=== PATIENT | male | born 1995 | race Asian ===

== ENCOUNTER 2020-09-09 18:53 | Emergency (ER) | payer SELFPAY ==
[~2020-09-09] VITALS: Ht 167.6 cm; Wt 65.9 kg
[2020-09-09 20:13] LABS: BASOPHILS % (AUTO) 0.7 % (0.0-2.0); EOSINOPHILS % (AUTO) 0.3 % (1.0-6.0); HEMATOCRIT 45.2 % (41-53); HEMOGLOBIN 15.3 g/dL (13.5-17.5); LYMPHOCYTES # (AUTO) 1.6 K/uL (1.0-4.8); LYMPHOCYTES % (AUTO) 21.8 % (22.0-44.0); MEAN CORPUSCULAR HGB CONC 33.8 G/dL (31.0-37.0); MEAN CORPUSCULAR VOLUME 89 fL (80-100); MONOCYTES # (AUTO) 1.4 K/uL (0.1-1.0); NEUTROPHILS # (AUTO) 4.3 K/uL (1.8-7.7); NEUTROPHILS % (AUTO) 58.2 % (40.0-70.0); PLATELET COUNT (AUTO) 219 K/uL (150-450); RED BLOOD CELL COUNT(AUTO) 5.08 MIL/uL (4.50-5.90); RED CELL DISTRIBUTION WIDTH 12.9 % (11.5-14.5)
[2020-09-09 20:22] LABS: ANION GAP 10 mmol/L (8-16); CALCIUM, TOTAL 10.5 mg/dL (8.8-10.5); CARBON DIOXIDE 30 mmol/L (22-29); CHLORIDE 99 mmol/L (98-107); GLOMERULAR FILTR. RATE CALC > 60 mL/min (>60); GLUCOSE,RANDOM 103 mg/dL (70-110); POTASSIUM 3.8 mmol/L (3.5-5.1); SODIUM SERUM 139 mmol/L (136-145); UREA NITROGEN, BLOOD 17 mg/dL (7-18)
[2020-09-09 20:28] LABS: ALANINE AMINOTRANSFERASE 48 U/L (12-78); ALBUMIN 4.7 g/dL (3.4-5.0); ALKALINE PHOSPHATASE 71 U/L (46-116); ASPARTATE AMINOTRANSFERASE 30 U/L (15-37); BILIRUBIN,TOTAL 1.4 mg/dL (0.1-1.0); TOTAL PROTEIN, SERUM 8.8 g/dL (6.4-8.2)
[2020-09-09 22:32] VITALS: BP 140/86
== END 2020-09-09 22:40 | disposition home or self-care (01) ==
LOC: EMS 18:53
DX: F20.9 Schizophrenia, unspecified (principal)
CPT/HCPCS: 36415; 80053; 85025; 99284; G0480

== ENCOUNTER 2020-09-20 11:06 | Emergency (ER) | payer SELFPAY ==
[~2020-09-20] VITALS: Ht 175.3 cm; Wt 68.2 kg
[2020-09-20 11:18] VITALS: BP 125/80
== END 2020-09-20 12:07 | disposition home or self-care (01) ==
LOC: EMS 11:11
DX: F29 Unspecified psychosis not due to a substance or known physiological condition (principal); R11.0 Nausea; F20.9 Schizophrenia, unspecified; F17.200 Nicotine dependence, unspecified, uncomplicated
CPT/HCPCS: 99281; Z7502

== ENCOUNTER 2021-03-14 13:27 | Emergency (ER) | payer MEDICAID ==
[~2021-03-14] VITALS: Ht 170.2 cm; Wt 63.6 kg
[2021-03-14] MEDS ORDERED: LORazepam 1 MG TABLET PO ONE (14:45)
[2021-03-14] MEDS ORDERED: HALOPERIDOL 5 MG TABLET PO ONE (14:45)
[2021-03-14 15:50] VITALS: BP 107/60
== END 2021-03-14 16:40 | disposition home or self-care (01) ==
LOC: EMS 13:27
DX: F20.9 Schizophrenia, unspecified (principal)
CPT/HCPCS: 99283

== ENCOUNTER 2021-03-15 14:03 | Emergency (ER) | payer MEDICAID ==
[~2021-03-15] VITALS: Ht 170.2 cm; Wt 63.6 kg
[2021-03-15 15:16] LABS: BASOPHILS % (AUTO) 1.4 % (0.0-2.0); EOSINOPHILS % (AUTO) 2.1 % (1.0-6.0); HEMATOCRIT 38.4 % (41-53); HEMOGLOBIN 12.9 g/dL (13.5-17.5); LYMPHOCYTES # (AUTO) 1.5 K/uL (1.0-4.8); LYMPHOCYTES % (AUTO) 44.7 % (22.0-44.0); MEAN CORPUSCULAR HEMOGLOBIN 29.7 pg (26.0-34.0); MEAN CORPUSCULAR HGB CONC 33.6 G/dL (31.0-37.0); MEAN CORPUSCULAR VOLUME 89 fL (80-100); MONOCYTES # (AUTO) 0.4 K/uL (0.1-1.0); MONOCYTES % (AUTO) 11.3 % (2.0-9.0); NEUTROPHILS # (AUTO) 1.3 K/uL (1.8-7.7); NEUTROPHILS % (AUTO) 40.5 % (40.0-70.0); PLATELET COUNT (AUTO) 181 K/uL (150-450); RED BLOOD CELL COUNT(AUTO) 4.35 MIL/uL (4.50-5.90)
[2021-03-15 15:28] LABS: ANION GAP 6 mmol/L (8-16); CARBON DIOXIDE 28 mmol/L (22-29); CHLORIDE 105 mmol/L (98-107); CREATININE 1.11 mg/dL (0.60-1.30); GLOMERULAR FILTR. RATE CALC > 60 mL/min (>60); GLUCOSE,RANDOM 114 mg/dL (70-110); POTASSIUM 4.1 mmol/L (3.5-5.1); SODIUM SERUM 139 mmol/L (136-145); UREA NITROGEN, BLOOD 11 mg/dL (7-18)
[2021-03-15 15:35] LABS: ALANINE AMINOTRANSFERASE 24 U/L (12-78); ALBUMIN 3.4 g/dL (3.4-5.0); ALKALINE PHOSPHATASE 92 U/L (46-116); ASPARTATE AMINOTRANSFERASE 32 U/L (15-37); BILIRUBIN,TOTAL 1.8 mg/dL (0.1-1.0); TOTAL PROTEIN, SERUM 6.5 g/dL (6.4-8.2)
[2021-03-15 16:45] VITALS: BP 123/69
== END 2021-03-15 17:12 | disposition home or self-care (01) ==
LOC: EMS 14:03
DX: R45.851 Suicidal ideations (principal); F32.9 Major depressive disorder, single episode, unspecified; F20.9 Schizophrenia, unspecified
CPT/HCPCS: 36415; 80053; 85025; 99284; G0480; 99285

== ENCOUNTER 2024-02-14 23:27 | Inpatient (IN) | payer MEDICAID, OTHER ==
[~2024-02-14] VITALS: Ht 167.6 cm; Wt 65.8 kg
[2024-02-15 02:33] LABS: COVID AG,FIA SOURCE NASAL SWAB
[2024-02-15 02:43] LABS: SARS-COV2 (COVID) ANTIGEN,FIA Negative (Negative)
[2024-02-15] MEDS ORDERED: HALOPERIDOL 5 MG TABLET PO ONE (04:00)
[2024-02-15] MEDS ORDERED: LORazepam 1 MG TABLET PO ONE (04:00)
[2024-02-15] MEDS: DiphenhydrAMINE HCL 50 MG/ML VIAL IM ONE (04:34)
[2024-02-15] MEDS: LORazepam 2 MG/ML VIAL IM ONE (04:34)
[2024-02-15] MEDS: HALOPERIDOL LACTATE 5 MG/ML VIAL IM ONE (04:34)
[2024-02-15 04:48] LABS: BASOPHILS % (AUTO) 0.2 % (0.0-2.0); EOSINOPHILS % (AUTO) 0 % (1.0-6.0); HEMATOCRIT 37.9 % (41-53); HEMOGLOBIN 12.3 g/dL (13.5-17.5); LYMPHOCYTES # (AUTO) 2.6 K/uL (1.0-4.8); LYMPHOCYTES % (AUTO) 22.1 % (22.0-44.0); MEAN CORPUSCULAR HEMOGLOBIN 28.1 pg (26.0-34.0); MEAN CORPUSCULAR HGB CONC 32.4 G/dL (31.0-37.0); MEAN CORPUSCULAR VOLUME 87 fL (80-100); MONOCYTES # (AUTO) 1.1 K/uL (0.1-1.0); MONOCYTES % (AUTO) 9.4 % (2.0-9.0); NEUTROPHILS # (AUTO) 7.9 K/uL (1.8-7.7); NEUTROPHILS % (AUTO) 68.3 % (40.0-70.0); PLATELET COUNT (AUTO) 278 K/uL (150-450); RED BLOOD CELL COUNT(AUTO) 4.37 MIL/uL (4.50-5.90); RED CELL DISTRIBUTION WIDTH 13.8 % (11.5-14.5); WHITE BLOOD COUNT (AUTO) 11.6 K/uL (4.5-11.0)
[2024-02-15 05:01] LABS: ANION GAP 11 mmol/L (8-16); CALCIUM, TOTAL 8.5 mg/dL (8.8-10.5); CARBON DIOXIDE 24 mmol/L (22-29); CHLORIDE 103 mmol/L (98-107); CREATININE 1.43 mg/dL (0.60-1.30); GLOMERULAR FILTR. RATE CALC 60 mL/min (>60); GLUCOSE,RANDOM 97 mg/dL (70-110); POTASSIUM 3.5 mmol/L (3.5-5.1); SODIUM SERUM 138 mmol/L (136-145); UREA NITROGEN, BLOOD 12 mg/dL (7-18)
[2024-02-15 05:31] LABS: ALCOHOL, BLOOD (SERUM) < 3 mg/dL (0-10)
[2024-02-15 07:15] VITALS: O2SAT 96
[2024-02-15] MEDS ORDERED: ZOLPIDEM TARTRATE 10 MG TABLET PO PRN (07:30)
[2024-02-15] MEDS ORDERED: OLANZapine 5 MG RAPDIS TABLET PO PRN (07:30)
[2024-02-15] MEDS ORDERED: CloNIDine HCL 0.1 MG TABLET PO PRN (09:00)
[2024-02-15] MEDS ORDERED: ACETAMINOPHEN 325 MG TABLET PO PRN ×2 (09:00→14:45)
[2024-02-15] MEDS ORDERED: BENZOCAINE/MENTHOL LOZENGE PO PRN (09:00)
[2024-02-15] MEDS ORDERED: IBUPROFEN 600 MG TABLET PO PRN (09:00)
[2024-02-15] MEDS ORDERED: LOPERAMIDE HCL 2 MG CAPSULE PO PRN (09:00)
[2024-02-15] MEDS ORDERED: PETROLATUM,WHITE 28 GM JELLY TP PRN (09:00)
[2024-02-15] MEDS ORDERED: BACITRACIN 28 GM OINTMENT TP PRN (09:00)
[2024-02-15] MEDS ORDERED: ALBUTEROL SULFATE HFA 90 MCG/PUFF 8 GM INHALER IH PRN (09:00)
[2024-02-15] MEDS ORDERED: DOCUSATE SODIUM 100 MG CAPSULE PO PRN (09:00)
[2024-02-15] MEDS ORDERED: ONDANSETRON 4 MG TABLET PO PRN (09:00)
[2024-02-15] MEDS ORDERED: OMEPRAZOLE 20 MG CAPSULE PO PRN (09:00)
[2024-02-15] MEDS ORDERED: MAG HYDROX/ALUMINUM HYD/SIMETH ES 30 ML SUSPENSION UDCUP PO PRN ×2 (09:00→14:45)
[2024-02-15] MEDS ORDERED: MAGNESIUM HYDROXIDE SUSPENSION 30 ML UDCUP PO PRN ×2 (09:00→14:45)
[2024-02-15 12:54] VITALS: BP 113/71; PULSE 66; RESP 18; TEMP 97.4; O2SAT 100
[2024-02-15] MEDS ORDERED: PROMETHAZINE HCL 25 MG TABLET PO PRN (14:45)
[2024-02-15] MEDS ORDERED: GuaiFENesin/D-METHORPHAN [SUGAR-FREE] 200-20MG/10 ML SYRUP UDCUP PO PRN (14:45)
[2024-02-15] MEDS ORDERED: TUBERCULIN, PURIFIED PROTEIN DERIVATIVE 5 TU/0.1 ML SYRINGE ID ONE (14:45)
[2024-02-15] MEDS ORDERED: PALIPERIDONE PALMITATE 234 MG/1.5 ML SYRINGE IM ONE (15:00)
[2024-02-15] MEDS: THIAMINE 100 MG TABLET PO SCH (17:10)
[2024-02-15] MEDS: MELATONIN 5 MG TABLET PO SCH (20:16)
[2024-02-15] MEDS: OLANZapine 5 MG RAPDIS TABLET PO SCH (20:21)
[2024-02-15 22:29] VITALS: RESP 18
[2024-02-16 08:03] VITALS: BP 100/44; PULSE 64; RESP 16; TEMP 97.4; O2SAT 99
[2024-02-16] MEDS: MULTIVITAMINS WITH MINERALS, THERAPEUTIC TABLET PO SCH (08:10)
[2024-02-16] MEDS: FOLIC ACID 1 MG TABLET PO SCH (08:10)
[2024-02-16] MEDS: NALTREXONE HCL 50 MG TABLET PO SCH (08:10)
[2024-02-16] MEDS: BuPROPion HCL XL 150 MG ER TABLET PO SCH (08:10)
[2024-02-16 09:02] LABS: HEMOGLOBIN A1C 5.4 % (3.8-5.6)
[2024-02-16 09:16] LABS: CHOL/HDL RATIO 3.1 (4.2-7.3); FREE T4 (FREE THYROXINE) 0.88 ng/dL (0.76-1.46); THYROID STIMULATING HORMONE 0.46 uIU/mL (0.36-3.74)
[2024-02-16] MEDS: DOXYCYCLINE HYCLATE 100 MG TABLET PO SCH (16:33)
[2024-02-16] MEDS: BACITRACIN 28 GM OINTMENT TP SCH (16:34)
[2024-02-16 20:28] VITALS: BP 124/72; PULSE 81; RESP 18; TEMP 96.2; O2SAT 100
[2024-02-17 08:27] VITALS: BP 111/60; PULSE 70; RESP 18; TEMP 97.9; O2SAT 99
[2024-02-17 12:46] LABS: GLUCOMETER DEV NAME(LOC) BV3N.2; GLUCOSE,POINT OF CARE 355 MG/DL (70-110)
[2024-02-17] MEDS: LORazepam 2 MG TABLET PO PRN (15:42)
[2024-02-17] MEDS: HydrOXYzine PAMOATE 50 MG CAPSULE PO PRN (15:42)
[2024-02-17 20:14] VITALS: BP 108/62; PULSE 72; RESP 17; TEMP 98; O2SAT 98
[2024-02-18 08:18] VITALS: BP 128/74; PULSE 78; RESP 16; TEMP 97.5; O2SAT 98
[2024-02-18] MEDS ORDERED: BUPR-514 PO (11:53)
[2024-02-18] MEDS ORDERED: OLAN5TAB94 PO (11:53)
[2024-02-18] MEDS ORDERED: NALT50TA33 PO (11:54)
[2024-02-18] MEDS ORDERED: MELA5TAB40 PO (11:57)
[2024-02-18] MEDS ORDERED: DOXY-354 PO (12:00)
[2024-02-18] MEDS ORDERED: BACI28.410 TP (12:02)
[2024-02-18 20:33] VITALS: BP 117/74; PULSE 73; RESP 17; TEMP 97.4; O2SAT 100
[2024-02-19 08:14] VITALS: BP 102/61; PULSE 79; RESP 17; TEMP 97.3; O2SAT 100
[2024-02-19] MEDS ORDERED: PALIPERIDONE PALMITATE 156 MG/ML SYRINGE IM ONE (09:00)
== END 2024-02-19 17:13 | disposition home or self-care (01) | DRG 750 ==
LOC: EMS 23:27 → B3A 02-15 07:18
PROVIDERS: ADMIT Psychiatry & Neurology Psychiatry; ATTEND Psychiatry & Neurology Psychiatry
PROC: GZHZZZZ Group Psychotherapy (ICD-10-PCS; principal; 2024-02-16)
PROC: GZ58ZZZ Individual Psychotherapy, Cognitive-Behavioral (ICD-10-PCS; 2024-02-16)
DX: F20.9 Schizophrenia, unspecified (principal); Z91.148 Patient's other noncompliance with medication regimen for other reason; F15.90 Other stimulant use, unspecified, uncomplicated; F17.200 Nicotine dependence, unspecified, uncomplicated; Z20.822 Contact with and (suspected) exposure to COVID-19; F41.9 Anxiety disorder, unspecified; K59.00 Constipation, unspecified; G47.00 Insomnia, unspecified; F19.10 Other psychoactive substance abuse, uncomplicated
CPT/HCPCS: 80048; 80061; 82962; 83036; 84439; 84443; 85025; 86592; 99291; G0480; J1200; J1630; J2060